=== PATIENT | male | born 1940 | race Caucasian/White ===

== ENCOUNTER 2023-05-21 18:46 | Inpatient (IN) | payer OTHER ==
[~2023-05-21] VITALS: Ht 167.6 cm; Wt 90.7 kg
[2023-05-21 19:11] VITALS: BP_SYST 171; PULSE 78; RESP 18; TEMP 98.4; O2SAT 95
--- NOTE | 2023-05-21 19:28 | NUR ---
Patient to ER bed 07 to gown for evaluation. Side rails up. Report given to JENNIFER ECHOLS
--- NOTE | 2023-05-21 19:59 | NUR ---
ER Dr. GARRIDO at bedside examining patient.
[2023-05-21] MEDS ORDERED: MORPHINE 4 MG INJ. 4 MG/ML VIAL IVP ONE ×2 (20:00→21:45)
[2023-05-21] MEDS ORDERED: ONDANSETRON HCL 4 MG/2 ML VIAL IVP ONE (20:00)
--- NOTE | 2023-05-21 20:10 | NUR ---
# 16 FR Singh catheter inserted with use of sterile technique. Immediate return of 200 cc bright red urine noted. Bedside drainage bag placed below level of bladder. Pt tolerated procedure well.
[2023-05-21] MEDS ORDERED: NACL 0.9% 1,000 ML IV ONE (20:45)
[2023-05-21 21:01] LABS: BLOOD, URINE 3+ (NEGATIVE); CLARITY/URINE CLOUDY (CLEAR); COLOR,URINE RED (YELLOW); GLUCOSE,URINE NEGATIVE (NEGATIVE); KETONES,URINE NEGATIVE (NEGATIVE); LEUKOCYTE ESTERASE ,URINE NEGATIVE (NEGATIVE); NITRITE, URINE NEGATIVE (NEGATIVE); PH,URINE 7.5 (5.0-8.0); PROTEIN URINE 3+ (NEGATIVE)
[2023-05-21 21:09] LABS: BILIRUBIN,URINE 1+ (NEGATIVE)
[2023-05-21 21:11] LABS: BASOPHILS % (AUTO) 0.3 % (0.0-2.0); EOSINOPHILS % (AUTO) 0.2 % (0.0-4.0); HEMATOCRIT 39.6 % (36-54); MEAN CORPUSCULAR HEMOGLOBIN 31 pg (27-31); MEAN CORPUSCULAR HGB CONC 33 % (32-36); MEAN CORPUSCULAR VOLUME 95 fL (79.0-98.0); MONOCYTES # (AUTO) 0.9 K/uL (0.0-1.0); MONOCYTES % (AUTO) 6.7 % (1.7-9.3); NEUTROPHILS # (AUTO) 11.9 K/uL (1.8-7.7); NEUTROPHILS % (AUTO) 85.8 % (40.0-70.0); PLATELET COUNT (AUTO) 235 K/uL (130-430); RED BLOOD CELL COUNT(AUTO) 4.19 MIL/uL (4.2-6.2); RED CELL DISTRIBUTION WIDTH 14.6 % (9.0-15.0); WHITE BLOOD COUNT (AUTO) 13.8 K/uL (4.8-10.8)
[2023-05-21 21:14] LABS: ANION GAP 11 (5-15); CALCIUM 8.6 mg/dL (8.4-11.0); CHLORIDE 100 mmol/L (98-107); CREATININE 1.59 mg/dL (0.55-1.30); GLUCOSE 111 mg/dL (74-106); UREA NITROGEN, BLOOD 21 mg/dL (8-21)
[2023-05-21 21:14] LABS: BACTERIA,URINE FEW /HPF (None Seen); MUCUS,URINE None Seen /LPF (None Seen); RBC,URINE >100 /HPF (0-3); WBC,URINE 0-3 /HPF (0-3)
[2023-05-21 21:19] LABS: ALANINE AMINOTRANSFERASE 41 U/L (12-78); ALBUMIN 3.6 g/dL (3.4-4.8); ASPARTATE AMINOTRANSFERASE 23 U/L (10-37)
[2023-05-21] MEDS ORDERED: NITR-85 PO (22:52)
[2023-05-22] VITALS (7 sets, daily range): BP systolic 122–148; PULSE 72–98; RESP 16–20; TEMP 97–98.6; O2SAT 94–97
--- NOTE | 2023-05-22 01:20 | NUR ---
ERMD MADE AWARE OF LARGE AMOUNT OF BLOOD/URINE COMING OUT FROM PT [facility] WITH BERGERON. NEW ORDER FOR ADMISSION.
[2023-05-22] MEDS ORDERED: TRAM50TA2 PO (01:40)
[2023-05-22] MEDS ORDERED: METO25TA6 PO (01:40)
[2023-05-22] MEDS ORDERED: NORT10CA PO (01:40)
[2023-05-22] MEDS ORDERED: ATOR20TA64 PO (01:40)
[2023-05-22] MEDS ORDERED: TAMS0.4C96 PO (01:40)
[2023-05-22] MEDS ORDERED: AMLO5TAB92 PO (01:40)
[2023-05-22] MEDS ORDERED: LISI1TAB57 PO (01:40)
[2023-05-22] MEDS ORDERED: RIVA20TA PO (01:40)
[2023-05-22] MEDS ORDERED: ESCI-6 PO (01:40)
[2023-05-22] MEDS ORDERED: SMZ/TMP (01:40)
[2023-05-22] MEDS ORDERED: ALPR0.5T8 PO (01:41)
--- NOTE | 2023-05-22 01:50 | NUR ---
PATIENT REPORTED URINARY RETENTION FEELING. NO URINE NOTED IN BERGERON BAG AND LARGE AMOUNT OF BLOOD NOTED IN PATIENTS DIAPER LEAKING FROM [facility]. 16F BERGERON REMOVED AND LARGE BLOOD CLOTS WERE SEEN IN THE BERGERON CATH. ERMD NOTIFIED. NEW ORDERS FOR A 3 WAY CATH AND BLADDER IRRIGATION.
--- NOTE | 2023-05-22 01:50 | NUR ---
Admit bed requested Patient will be admitted to care of . Admitted to MED SURG unit. Diagnosis HEMATURIA Inpatient (Yes or No) Y Observation (Yes or No) N Orientation concerns or request close to nursing station (Yes or No) N Covid Status N On vent or bipap N Isolation requirements N Needs a sitter N From Home (Yes or if No enter name of facility) Y Requires Dialysis (Yes or No) N Med Rec Completed (Yes of No) Y
--- NOTE | 2023-05-22 02:10 | NUR ---
# 22 FR Singh catheter inserted with use of sterile technique. Immediate return of 500 cc bright red urine noted. Bedside drainage bag placed below level of bladder. Pt tolerated procedure well.
--- NOTE | 2023-05-22 02:15 | NUR ---
BLADDER IRRIGATION STARTED, SLOW AT APPROX 150 ML/HR
--- NOTE | 2023-05-22 02:45 | NUR ---
Patient will be admitted to care of DR MULLINS. Admitted to MS unit. Will go to room 101A. Belongings list completed. Complete and up to date summary report printed. SBAR report to be given at bedside with opportunity for questions.
--- NOTE | 2023-05-22 02:50 | NUR ---
ADMISSION NOTES; pt. came in from ER with DX Urinary retention, received on CBI with 3 way corado cath with bloody urine. pt. awake, alert, oriented top room and use of call light. IV lock on left antecubital. was given Morphine in ER for pain. on room air. call light within reach. will give report to nurse Karen. PEDRO Jimenez asked to take VS.
--- NOTE | 2023-05-22 03:30 | NUR ---
RECEIVED PT FROM CN, ESTHELAX4, EVEN AND UNLABORED BREATHING, IN BED, ROOM AIR, NO C/O PAIN ATT, ON CBI, 3 WAY CATHETER WITH BLOODY DRAINAGE, SALINE LOCK TO LAC PATENT AND FLUSHING WELL, SKIN CHECK REVEALED REDNESS AND RASH ON GUS GROINS, PT STATED IT DOES NOT BOTHER HIM, PT ANSWERED ALL ADMIT QUESTIONS, WILL CONTINUE WITH POC
--- NOTE | 2023-05-22 06:20 | NUR ---
PT IN BED, AOX4, EVEN AND UNLABORED BREATHING, ROOM AIR, PT DENIED ANY PAIN, CP OR SOB, ON CBI, 3 WAY CATHETER, SLIGHT BLOODY DRAINAGE, SALINE LOCK TO LAC PATENT AND FLUSHING WELL, TOLERATING REGULAR DIET, NO CHANGES DURING THE SHIFT, ON BED REST, SAFETY PREC MAINTAINED, WILL ENDORSE TO AM SHIFT
--- NOTE | 2023-05-22 08:00 | NUR ---
received patient from pm nurse, alert and oriented able to verbalize needs, 3 way corado irrigation in place wide open, dark blood observed in corado with large clots, c/o slight pressure in abdomen, will continue to monitor out put
--- NOTE | 2023-05-22 08:01 | NUR ---
CONSULTATION PAGED/CALLED Reason for Consultation: HEMATURIA Person Who was Notified: DR. STEVENS EXCHANGE AND LEFT MESSAGE Consulting Physician: DR. STEVENS Manager Front Specialty: UROLOGY Ordering Physician: DR. MULLINS
[2023-05-22] MEDS ORDERED: TAMSULOSIN HCL 0.4 MG CAP PO ONE (10:00)
[2023-05-22] MEDS ORDERED: METOPROLOL TARTRATE 25 MG TABLET PO ONE (10:00)
[2023-05-22] MEDS ORDERED: ESCITALOPRAM OXALATE 10 MG TABLET PO SCH (10:00)
[2023-05-22] MEDS ORDERED: ONDANSETRON HCL 4 MG/2 ML VIAL IVP PRN (10:00)
[2023-05-22] MEDS ORDERED: traMADol HCL HCL 50 MG TABLET (ULTRAM) PO PRN (10:00)
[2023-05-22] MEDS ORDERED: amLODIPine BESYLATE 5 MG TABLET PO ONE (10:00)
[2023-05-22] MEDS ORDERED: LORazepam 2 MG/ML VIAL IVP PRN (10:00)
[2023-05-22] MEDS ORDERED: ACETAMINOPHEN 325 MG TABLET PO PRN ×2 (10:00→10:15)
--- NOTE | 2023-05-22 10:12 | NUR ---
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 Du Advertising Specialist Specialty: ID Ordering Physician: Dr. Fontaine
[2023-05-22] MEDS ORDERED: CITALOPRAM HYDROBROMIDE 20 MG TABLET PO ONE (10:15)
[2023-05-22] MEDS ORDERED: HYDROCHLOROTHIAZIDE 25 MG TABLET (HCTZ) PO ONE (10:30)
[2023-05-22] MEDS ORDERED: lisinopriL 20 MG TABLET PO ONE (10:30)
[2023-05-22] MEDS: cefTRIAXone 1 GM IVPB PREMIX 50 ML IV SCH (13:40)
[2023-05-22] MEDS: NORMAL SALINE 5 ML DISP.SYRIN IVF SCH ×2 (13:40→20:24)
--- NOTE | 2023-05-22 15:00 | NUR ---
bladder irrigation output clear and no blood clots observed, no c/o pain or discomfort, flow decreased at this time
--- NOTE | 2023-05-22 19:35 | NUR ---
OPENING NOTE Pt laying in bed, awake and stable. No s/s of respiratory distress, breathing even and unlabored. at bedside. No complaints of pain or distress at this time. Pt asked for medication to help with sleep. Continuous bladder irrigation no blood noted, urine clear and yellow. Plan of care for the shift is communicated to the patient. Pt demonstrates correct usage of call light at this time, call light will be placed within reach of hand throughout the shift. Fall, safety, respiratory, and aspiration precautions will be taken throughout the shift. Bed at lowest position, bed alarm on, and call light within reach.
[2023-05-22] MEDS: ATORVASTATIN 20 MG TABLET PO SCH (20:21)
[2023-05-22] MEDS: NORTRIPTYLINE HCL 10 MG CAPSULE PO SCH (20:21)
[2023-05-22] MEDS: METOPROLOL TARTRATE 25 MG TABLET PO SCH (20:21)
[2023-05-22] MEDS: ALPRAZolam 0.25 MG TABLET PO PRN (20:21)
--- NOTE | 2023-05-23 00:27 | NUR ---
ROUNDS Pt laying in bed, with eyes closed. No s/s of respiratory distress, breathing even and unlabored. Continuous bladder irrigation no blood noted, urine clear and yellow in color. No complaints of pain or discomfort at this time. Fall, safety, respiratory, and aspiration precautions in place. Bed at lowest position, bed alarm on, and call light within reach.
[2023-05-23 00:49] VITALS: BP_SYST 128; PULSE 59; RESP 17; TEMP 97.4; O2SAT 97
--- NOTE | 2023-05-23 04:30 | NUR ---
ROUNDS Pt laying in bed with eyes closed. No s/s of respiratory distress, breathing even and unlabored. No complaints of pain at this time. Continuous bladder irrigation no blood noted, urine clear and yellow in color. Fall and safety precaution in place. Bed at lowest position, bed alarm on, and call light within reach.
[2023-05-23 05:51] LABS: ANION GAP 7 (5-15); CALCIUM 8.9 mg/dL (8.4-11.0); CHLORIDE 105 mmol/L (98-107); CREATININE 1.33 mg/dL (0.55-1.30); GLUCOSE 90 mg/dL (74-106); UREA NITROGEN, BLOOD 14 mg/dL (8-21)
[2023-05-23] MEDS: NORMAL SALINE 5 ML DISP.SYRIN IVF SCH ×3 (06:02→22:20)
[2023-05-23 06:20] LABS: BASOPHILS # (AUTO) 0.1 K/uL (0.0-0.2); BASOPHILS % (AUTO) 0.7 % (0.0-2.0); EOSINOPHILS # (AUTO) 0.3 K/uL (0.0-0.4); EOSINOPHILS % (AUTO) 3.5 % (0.0-4.0); HEMATOCRIT 38.9 % (36-54); HEMOGLOBIN 12.7 g/dL (14.0-18.0); LYMPHOCYTES # (AUTO) 1.6 K/uL (1.0-5.5); LYMPHOCYTES % (AUTO) 18.2 % (20.5-51.5); MEAN CORPUSCULAR HEMOGLOBIN 31 pg (27-31); MEAN CORPUSCULAR HGB CONC 33 % (32-36); MEAN CORPUSCULAR VOLUME 96 fL (79.0-98.0); MONOCYTES # (AUTO) 0.8 K/uL (0.0-1.0); MONOCYTES % (AUTO) 9.5 % (1.7-9.3); NEUTROPHILS % (AUTO) 68.1 % (40.0-70.0); PLATELET COUNT (AUTO) 222 K/uL (130-430); RED BLOOD CELL COUNT(AUTO) 4.06 MIL/uL (4.2-6.2); RED CELL DISTRIBUTION WIDTH 14.7 % (9.0-15.0); WHITE BLOOD COUNT (AUTO) 8.8 K/uL (4.8-10.8)
--- NOTE | 2023-05-23 06:56 | NUR ---
CLOSING NOTE Pt laying in bed, awake and stable. No s/s of respiratory distress, breathing even and unlabored. No complaints of pain at this time. Continuous bladder irrigation no blood noted, urine clear and yellow in color. All needs met throughout shift. Fall and safety precaution in place. Bed at lowest position, bed alarm on, and call light within reach.
[2023-05-23 08:00] VITALS: O2SAT 96
--- NOTE | 2023-05-23 08:00 | NUR ---
RECEIVED PATIENT FROM PM NURSE, ALERT AND ORIENTED ABLE TO VERBALIZE NEEDS, NO C/O PAIN OR DISCOMFORT, IV IN LFA PATENT W/O S/O INFILTRATE, BLADDER IRRIGATION RUNNING AND CLEAR YELLOW URINE IN BAG, WILL ASSUME ALL CARE OF PATIENT
[2023-05-23] MEDS: CITALOPRAM HYDROBROMIDE 20 MG TABLET PO SCH (08:45)
[2023-05-23] MEDS: TAMSULOSIN HCL 0.4 MG CAP PO SCH (08:45)
[2023-05-23] MEDS: METOPROLOL TARTRATE 25 MG TABLET PO SCH ×2 (08:46→22:20)
[2023-05-23] MEDS: lisinopriL 20 MG TABLET PO SCH (08:46)
[2023-05-23] MEDS: amLODIPine BESYLATE 5 MG TABLET PO SCH (08:47)
[2023-05-23] MEDS: HYDROCHLOROTHIAZIDE 25 MG TABLET (HCTZ) PO SCH (08:47)
[2023-05-23 12:50] VITALS: BP_SYST 140; PULSE 79; RESP 18; TEMP 96.6; O2SAT 95
[2023-05-23] MEDS: cefTRIAXone 1 GM IVPB PREMIX 50 ML IV SCH (13:27)
[2023-05-23 17:41] VITALS: BP_SYST 112; PULSE 75; RESP 18; TEMP 98.2; O2SAT 96
--- NOTE | 2023-05-23 19:08 | NUR ---
PATIENT RESTING COMFORTABLY IN BED, NO C/O PAIN OR DISCOMFORT AT THIS TIME, CALL FROM LAB REQUESTING UA SPECIMEN, BERGERON CLAMPED TEMPORARILY , WILL ENDORSE TO ONCOMING SHIFT
[2023-05-23 20:00] VITALS: BP_SYST 148; PULSE 91; RESP 16; TEMP 98.4; O2SAT 95
--- NOTE | 2023-05-23 21:00 | NUR ---
OPENING NOTES PATIENT IS SITTING IN BED AXO 4 WITH FAMILY AT BEDSIDE. BREATHING IS EQUAL AND UNLABORED ON RA. BERGERON CATHETER IS IN PLACE. NO S/S OR COMPLAINTS OR DISTRESS OR DISCOMFORT. BLADDER IRRIGATION IS OFF AND URINE IS YELLOW. PATIENT USED BSC TO BOWEL MOVEMENT. SAFETY CHECKS DONE AND CALL LIGHT WITH IN REACH, WILL CONTINUE TO MONITOR.
[2023-05-23] MEDS: ATORVASTATIN 20 MG TABLET PO SCH (22:19)
[2023-05-23] MEDS: NORTRIPTYLINE HCL 10 MG CAPSULE PO SCH (22:19)
[2023-05-23] MEDS: ALPRAZolam 0.25 MG TABLET PO PRN (22:20)
--- NOTE | 2023-05-23 23:30 | NUR ---
AT BEDSIDE DR. MENDOZA AT BEDSIDE WITH PATIENT.
[2023-05-24] VITALS (7 sets, daily range): BP systolic 122–158; PULSE 63–95; RESP 16–20; TEMP 96.5–98.9; O2SAT 95–97
--- NOTE | 2023-05-24 03:41 | NUR ---
ROUNDS PATIENT IS ASLEEP IN BED WITH NO S/S OF DISTRESS OR DISCOMFORT. BERGERON CATHETER INTACT AND WORKING. SAFETY CHECKS DONE, CALL LIGHT WITH IN REACH AND WILL CONTINUE TO MONITOR.
[2023-05-24 04:40] LABS: BASOPHILS # (AUTO) 0.1 K/uL (0.0-0.2); BASOPHILS % (AUTO) 0.8 % (0.0-2.0); EOSINOPHILS # (AUTO) 0.4 K/uL (0.0-0.4); EOSINOPHILS % (AUTO) 4.5 % (0.0-4.0); HEMATOCRIT 37.8 % (36-54); HEMOGLOBIN 12.5 g/dL (14.0-18.0); LYMPHOCYTES # (AUTO) 1.7 K/uL (1.0-5.5); LYMPHOCYTES % (AUTO) 19.1 % (20.5-51.5); MEAN CORPUSCULAR HEMOGLOBIN 32 pg (27-31); MEAN CORPUSCULAR HGB CONC 33 % (32-36); MEAN CORPUSCULAR VOLUME 95 fL (79.0-98.0); MONOCYTES % (AUTO) 11.4 % (1.7-9.3); NEUTROPHILS # (AUTO) 5.7 K/uL (1.8-7.7); NEUTROPHILS % (AUTO) 64.2 % (40.0-70.0); PLATELET COUNT (AUTO) 216 K/uL (130-430); RED BLOOD CELL COUNT(AUTO) 3.97 MIL/uL (4.2-6.2); RED CELL DISTRIBUTION WIDTH 14.6 % (9.0-15.0); WHITE BLOOD COUNT (AUTO) 8.9 K/uL (4.8-10.8)
[2023-05-24 04:45] LABS: ANION GAP 8 (5-15); CALCIUM 8.8 mg/dL (8.4-11.0); CHLORIDE 104 mmol/L (98-107); CREATININE 1.35 mg/dL (0.55-1.30); GLUCOSE 99 mg/dL (74-106); UREA NITROGEN, BLOOD 15 mg/dL (8-21)
[2023-05-24 04:56] LABS: ERYTHROCYTE SEDIMENTATION RATE 43 MM/HR (0-15)
[2023-05-24] MEDS: NORMAL SALINE 5 ML DISP.SYRIN IVF SCH ×2 (05:51→13:22)
--- NOTE | 2023-05-24 06:48 | NUR ---
CLOSING NOTES PATIENT IS ASLEEP IN BED WITH NO S/S OF DISTRESS OR DISCOMFORT. BERGERON CATHETER STILL INTACT. IV INTACT AND FLUSHED. ALL NEEDS ARE MET AT THIS TIME. SAFETY CHECKS DONE AND CALL LIGHT WITH IN REACH,
[2023-05-24] MEDS: TAMSULOSIN HCL 0.4 MG CAP PO SCH (09:02)
[2023-05-24] MEDS: lisinopriL 20 MG TABLET PO SCH (09:03)
[2023-05-24] MEDS: METOPROLOL TARTRATE 25 MG TABLET PO SCH (09:03)
[2023-05-24] MEDS: amLODIPine BESYLATE 5 MG TABLET PO SCH (09:04)
[2023-05-24] MEDS: CITALOPRAM HYDROBROMIDE 20 MG TABLET PO SCH (09:04)
[2023-05-24] MEDS: HYDROCHLOROTHIAZIDE 25 MG TABLET (HCTZ) PO SCH (09:04)
[2023-05-24] MEDS: cefTRIAXone 1 GM IVPB PREMIX 50 ML IV SCH (13:22)
[2023-05-24] MEDS ORDERED: CIPR250T4 PO (15:08)
--- NOTE | 2023-05-24 19:45 | NUR ---
OPENING NOTE Received patient awake, walking/pacing in room. and son are visiting at bedside. He is getting restless due to wait time on discharge procedure. Informed will need to type/prepare discharge papers and he will be ready for D/C. He was upset and repeats that he's been waiting hours for D/C; however he was willing to wait for paperwork. He will discharge with corado cath and needs to regular corado bag replaced with leg corado bag and he refused; he said has appt on Sunday with urologist and will have it taken care of at next visit.
--- NOTE | 2023-05-24 20:40 | NUR ---
D/C Patient Patient given medication reconciliation form and D/C instructions. Exit Care provided. Patient verbalized understanding. MD discussed with patient the results and treatment provided. Patient agreed to have regular corado bag replaced with leg corado bag; procedure explained along with corado care and bag emptying instructions; he verbalized understanding. He tolerated, no discomfort noted. Ambulatory with steady gait for discharge to home. Patient in stable condition, ID band removed. IV catheter removed, intact and dressing applied, no active bleeding. Rx of Cipro sent to his pharmacy.
[2023-05-25] MEDS ORDERED: ACET1TAB93 PO (15:19)
== END 2023-05-24 23:39 | disposition home health service (06) | DRG 872 ==
LOC: SED 18:46 → SMU 05-22 01:30
PROVIDERS: ADMIT Preventive Medicine Preventive Medicine/Occupational Environmental Medicine; ATTEND Preventive Medicine Preventive Medicine/Occupational Environmental Medicine
PROC: 3E1K78Z Irrigation of Genitourinary Tract using Irrigating Substance, Via Natural or Artificial Opening (ICD-10-PCS; principal; 2023-05-23)
DX: A41.9 Sepsis, unspecified organism (principal); N39.0 Urinary tract infection, site not specified; N17.9 Acute kidney failure, unspecified; R73.9 Hyperglycemia, unspecified; Z85.51 Personal history of malignant neoplasm of bladder; R31.0 Gross hematuria; Z79.2 Long term (current) use of antibiotics; Z79.899 Other long term (current) drug therapy
CPT/HCPCS: 36415; 80048; 80053; 81000; 85025; 85651-TC; 87040; 87086; 96361; 96374; 96375; 99285; J0696; J2270; J2405; J7030; J7040

== ENCOUNTER 2023-05-25 05:08 | Emergency (ER) | payer OTHER ==
[~2023-05-25] VITALS: Ht 167.6 cm; Wt 90.7 kg
[~2023-05-25 05:08] MED LIST: ALPR0.5T8 PO; AMLO5TAB92 PO; ATOR20TA64 PO; CIPR250T4 PO; ESCI-6 PO; LISI1TAB57 PO; METO25TA6 PO; NITR-85 PO; NORT10CA PO; RIVA20TA PO; TAMS0.4C96 PO; TRAM50TA2 PO
[2023-05-25 05:27] VITALS: BP_SYST 142; PULSE 71; RESP 20; TEMP 97.4; O2SAT 95
[2023-05-25 07:25] LABS: BASOPHILS # (AUTO) 0.1 K/uL (0.0-0.2); BASOPHILS % (AUTO) 0.6 % (0.0-2.0); EOSINOPHILS # (AUTO) 0.2 K/uL (0.0-0.4); EOSINOPHILS % (AUTO) 1.4 % (0.0-4.0); HEMATOCRIT 40.3 % (36-54); LYMPHOCYTES # (AUTO) 1.3 K/uL (1.0-5.5); LYMPHOCYTES % (AUTO) 10.9 % (20.5-51.5); MEAN CORPUSCULAR HEMOGLOBIN 31 pg (27-31); MEAN CORPUSCULAR HGB CONC 32 % (32-36); MEAN CORPUSCULAR VOLUME 96 fL (79.0-98.0); MONOCYTES # (AUTO) 1.1 K/uL (0.0-1.0); MONOCYTES % (AUTO) 8.7 % (1.7-9.3); NEUTROPHILS # (AUTO) 9.5 K/uL (1.8-7.7); NEUTROPHILS % (AUTO) 78.4 % (40.0-70.0); PLATELET COUNT (AUTO) 243 K/uL (130-430); RED CELL DISTRIBUTION WIDTH 14.6 % (9.0-15.0); WHITE BLOOD COUNT (AUTO) 12.1 K/uL (4.8-10.8)
[2023-05-25 07:38] VITALS: BP_SYST 140; PULSE 84; RESP 18; TEMP 97.5; O2SAT 96
[2023-05-25 07:45] LABS: ALANINE AMINOTRANSFERASE 43 U/L (12-78); ALBUMIN 3.4 g/dL (3.4-4.8); ANION GAP 10 (5-15); ASPARTATE AMINOTRANSFERASE 32 U/L (10-37); CALCIUM 9.1 mg/dL (8.4-11.0); CHLORIDE 98 mmol/L (98-107); CREATININE 1.49 mg/dL (0.55-1.30); GLUCOSE 128 mg/dL (74-106); TOTAL BILIRUBIN 1.1 mg/dL (0.0-1.0); UREA NITROGEN, BLOOD 23 mg/dL (8-21)
[2023-05-25 08:01] LABS: BILIRUBIN,URINE NEGATIVE (NEGATIVE); BLOOD, URINE 3+ (NEGATIVE); CLARITY/URINE SL CLOUDY (CLEAR); COLOR,URINE YELLOW (YELLOW); GLUCOSE,URINE NEGATIVE (NEGATIVE); KETONES,URINE NEGATIVE (NEGATIVE); LEUKOCYTE ESTERASE ,URINE 2+ (NEGATIVE); NITRITE, URINE NEGATIVE (NEGATIVE); PH,URINE 7.5 (5.0-8.0); PROTEIN URINE 3+ (NEGATIVE)
[2023-05-25 08:27] LABS: BACTERIA,URINE RARE /HPF (None Seen); RBC,URINE 20-50 /HPF (0-3)
[2023-05-25] MEDS ORDERED: ACET1TAB93 PO (15:19)
== END 2023-05-25 08:55 | disposition home or self-care (01) ==
LOC: SED 05:08
DX: R31.9 Hematuria, unspecified (principal); R10.30 Lower abdominal pain, unspecified; Z85.9 Personal history of malignant neoplasm, unspecified; Z79.899 Other long term (current) drug therapy
CPT/HCPCS: 36415; 80053; 81000; 85025; 87086; 99283

== ENCOUNTER 2023-05-25 14:04 | Emergency (ER) | payer OTHER ==
[~2023-05-25] VITALS: Ht 167.6 cm; Wt 90.7 kg
[2023-05-25 14:05] VITALS: BP_SYST 175; PULSE 90; RESP 17; TEMP 97.6; O2SAT 98
[2023-05-25] MEDS ORDERED: IBUPROFEN 800 MG TABLET PO ONE (15:00)
[2023-05-25] MEDS ORDERED: ACETAMINOPHEN 325 MG TABLET PO ONE (15:00)
[2023-05-25] MEDS ORDERED: ACET1TAB93 PO (15:19)
[2023-05-25 16:05] VITALS: BP_SYST 140; PULSE 89; RESP 18; TEMP 97.6; O2SAT 97
== END 2023-05-25 16:05 | disposition home or self-care (01) ==
LOC: SED 14:04
DX: N40.0 Benign prostatic hyperplasia without lower urinary tract symptoms (principal); R33.9 Retention of urine, unspecified; Z85.9 Personal history of malignant neoplasm, unspecified; Z79.899 Other long term (current) drug therapy
CPT/HCPCS: 99284

== ENCOUNTER 2023-05-29 15:42 | Emergency (ER) | payer OTHER ==
[~2023-05-29] VITALS: Ht 167.6 cm; Wt 90.7 kg
[~2023-05-29 15:42] MED LIST changes: +ACET1TAB93 PO
[2023-05-29 16:05] VITALS: BP_SYST 185; PULSE 70; RESP 18; TEMP 98.1; O2SAT 96
--- NOTE | 2023-05-29 16:10 | NUR ---
Patient to ER bed 04 to gown for evaluation. Side rails up. Report given to JENNIFER Oliva
--- NOTE | 2023-05-29 16:10 | NUR ---
ER at bedside examining patient.
[2023-05-29 16:40] VITALS: TEMP 97.8
--- NOTE | 2023-05-29 16:47 | NUR ---
Pt C/O of urine retention Hx of BPH VSS Able to make needs known NAD at this time Will continue to monitor
--- NOTE | 2023-05-29 16:47 | NUR ---
Singh catheter inserted with leg bag placed on left upper leg
== END 2023-05-29 16:45 | disposition home or self-care (01) ==
LOC: SED 15:42
DX: R33.9 Retention of urine, unspecified (principal); R10.30 Lower abdominal pain, unspecified; Z85.9 Personal history of malignant neoplasm, unspecified; Z79.899 Other long term (current) drug therapy
CPT/HCPCS: 99284